=== PATIENT | female | born 1980 | race Caucasian/White ===

== ENCOUNTER 2016-07-23 10:40 | Emergency (ER) | payer BC ==
--- NOTE | 2016-07-23 10:46 | EDM.PDOC ---
ED HPI GI/ABDOMINAL - General Stated Complaint: ABD PAIN Time Seen by Provider: 07/23/16 10:41 Source of Information: Reports: Patient History Limitations: Reports: No limitations - History of Present Illness INITIAL COMMENTS - FREE TEXT/NARRATIVE: History of present illness: [] Patient states that she's been having lower abdominal pain and watery diarrhea that began with one episode 4 days ago and then stopped. The symptoms restarted 2 days ago and has had 4 episodes since. Patient she also started having nonbloody vomiting. She states she's had episodes of incontinence of nonbloody, watery stool. She denies any back pain, numbness or tingling, or difficulty walking. Review of systems: As per history of present illness and below otherwise all systems reviewed and negative. Past medical history: As per history of present illness and as reviewed below otherwise noncontributory. Surgical history: As per history of present illness and as reviewed below otherwise noncontributory. Social history: No reported history of drug or alcohol abuse. Family history: As per history of present illness and as reviewed below otherwise noncontributory. Physical exam: General: Well developed, well nourished in NAD HEENT: Atraumatic, normocephalic, pupils reactive, negative for conjunctival pallor or scleral icterus, mucous membranes moist, throat clear, neck supple, nontender, trachea midline. Lungs: Clear to auscultation, breath sounds equal bilaterally, chest nontender. Heart: S1S2, regular, negative for clicks, rubs, or JVD. Abdomen: Soft, nondistended, nontender. Negative for masses or hepatosplenomegaly. Negative for costovertebral tenderness. Back: No vertebral or paraspinal tenderness to palpation from neck to lumbar- sacral spine. Pelvis: Stable nontender. Genitourinary: Deferred. Rectal: Normal Sphincter tone, no gross blood Extremities: Atraumatic, negative for cords or calf pain. Neurovascular unremarkable. Neuro: Awake, alert, oriented. Cranial nerves II through XII unremarkable. Cerebellum unremarkable. Motor and sensory unremarkable throughout. Exam nonfocal. Diagnostics: [] Labs which are normal, x-ray is excluding a call obstruction Therapeutics: [] IV hydrated the patient had no episodes of fecal incontinence while in the ED. Impression: [] Acute gastroenteritis Plan: [] Zofran for nausea a little up PMD return if symptoms worsen Definitive disposition and diagnosis as appropriate pending reevaluation and review of above. - Related Data Allergies/ADRs: Allergies Allergy/AdvReac Type Severity Reaction Status Date / Time No Known Allergies Allergy Verified 07/23/16 10:49 Home Meds: Home Meds Ondansetron [Zofran ODT] 4 mg PO Q8H PRN #12 tab.dis 07/23/16 [Rx] ED ROS GENERAL - Review of Systems Review Of Systems: See Below (See history of present illness) ED EXAM, GI/ABD - Physical Exam Exam: See Below (See history of present illness) Course - Vital Signs Last Recorded V/S: Last Vital Signs Temp 36.2 C 07/23/16 10:54 Pulse 104 H 07/23/16 10:54 Resp 18 07/23/16 10:54 BP 135/74 07/23/16 10:54 Pulse Ox 96 07/23/16 10:54 - Orders/Labs/Meds Labs: Laboratory Tests 07/23/16 07/23/16 07/23/16 Range/Units 10:50 10:57 10:57 WBC 6.81 (4.0-11.0) K/uL RBC 5.36 (4.30-5.90) M/uL Hgb 14.6 (12.0-16.0) g/dL Hct 45.3 (36.0-46.0) % MCV 84.5 (80.0-98.0) fL MCH 27.2 (27.0-32.0) pg MCHC 32.2 (31.0-37.0) g/dL RDW Std Deviation 46.3 (28.0-62.0) fl RDW Coeff of Chele 15 (11.0-15.0) % Plt Count 245 (150-400) K/uL MPV 10.20 (7.40-12.00) fL Neut % (Auto) 61.0 (48.0-80.0) % Lymph % (Auto) 24.8 (16.0-40.0) % [place] % (Auto) 12.5 (0.0-15.0) % Eos % (Auto) 1.6 (0.0-7.0) % Baso % (Auto) 0.1 (0.0-1.5) % Neut # (Auto) 4.2 (1.4-5.7) K/uL Lymph # (Auto) 1.7 (0.6-2.4) K/uL [place] # (Auto) 0.9 H (0.0-0.8) K/uL Eos # (Auto) 0.1 (0.0-0.7) K/uL Baso # (Auto) 0.0 (0.0-0.1) K/uL Nucleated RBC % 0.0 /100WBC Nucleated RBCs # 0 K/uL Sodium 139 (136-146) mmol/L Potassium 3.9 (3.5-5.1) mmol/L Chloride 105 (98-110) mmol/L Carbon Dioxide 21 (21-31) mmol/L BUN 10 (6.0-23.0) mg/dL Creatinine 0.9 (0.6-1.5) mg/dL Est Cr Clr Drug Dosing 73.55 mL/min Estimated GFR (MDRD) > 60.0 ml/min Glucose 85 (60-110) mg/dL Calcium 9.6 (8.8-10.8) mg/dL Total Bilirubin 0.9 (0.1-1.5) mg/dL AST 28 (5-40) IU/L ALT 24 (8-54) IU/L Alkaline Phosphatase 55 (40-150) Total Protein 8.3 H (6.0-8.0) g/dL Albumin 4.6 (3.5-5.0) g/dL Globulin 3.7 H (2.0-3.5) g/dL Albumin/Globulin Ratio 1.2 L (1.3-2.8) Lipase 16 (7-80) U/L Urine HCG, Qual NEGATIVE (NEGATIVE) Meds: Medications Discontinued Medications Generic Name Dose Route Start Last Admin Trade Name Freq PRN Reason Stop Dose Admin Sodium Chloride 1,000 mls @ 999 mls/hr 07/23/16 11:04 07/23/16 11:20 Normal Saline IV 07/23/16 12:04 999 mls/hr .Bolus ONE Administration Ondansetron HCl 4 mg 07/23/16 11:04 07/23/16 11:20 Zofran IVPUSH 07/23/16 11:05 4 mg ONETIME ONE Administration Departure - Departure Time of Disposition: 13:05 Disposition: Home, Self-Care 01 Condition: good Clinical Impression: Acute gastroenteritis Prescriptions: Ondansetron [Zofran ODT] 4 mg PO Q8H PRN #12 tab.dis PRN Reason: Nausea Referrals: PCP,None [Primary Care Provider] - Additional Instructions: The following information is given to patients seen in the emergency department who are being discharged to home. This information is to outline your options for follow-up care. We provide all patients seen in our emergency department with a follow-up referral. The need for follow-up, as well as the timing and circumstances, are variable depending upon the specifics of your emergency department visit. If you don't have a primary care physician on staff, we will provide you with a referral. We always advise you to contact your personal physician following an emergency department visit to inform them of the circumstance of the visit and for follow-up with them and/or the need for any referrals to a consulting specialist. The emergency department will also refer you to a specialist when appropriate. This referral assures that you have the opportunity for follow-up care with a specialist. All of these measure are taken in an effort to provide you with optimal care, which includes your follow-up. Under all circumstances we always encourage you to contact your private physician who remains a resource for coordinating your care. When calling for follow-up care, please make the office aware that this follow-up is from your recent emergency room visit. If for any reason you are refused follow-up, please contact the [facility] Emergency Department at and asked to speak to the emergency department charge nurse. Zofran for nausea increase fluids followup with PMD [facility] [address] [place] [id number]
[2016-07-23] MEDS ORDERED: Sodium Chloride 0.9% 1,000 ML IV ONE (11:04)
[2016-07-23] MEDS ORDERED: Ondansetron 4 MG/2 ML SDV IVPUSH ONE (11:04)
[2016-07-23 11:23] LABS: CHLORIDE,CL 105 mmol/L (98-110); SODIUM,NA 139 mmol/L (136-146)
--- NOTE | 2016-07-23 12:18 | CR ---
EXAMINATION: PA chest and AP abdomen HISTORY: Vomiting. FINDINGS: The trachea is midline. The cardiomediastinal silhouette is within normal limits. No pulmonary infil trates, effusions or pneumothorax. Osseous structures appear unremarkable. There is a small amount of stool and gas throughout the colon without evidence of a small bowel obst ruction. No dilated loops of small bowel. No abnormal calcifications or organomegaly. IMPRESSION: 1. No acute cardiopulmonary process. 2. Nonobstructive bowel gas pattern.
[2016-07-23 13:23] VITALS: BP 124/80
== END 2016-07-23 13:23 | disposition home or self-care (01) ==
LOC: MERGE 10:40 → MW.ED 10:40
DX: K52.9 Noninfective gastroenteritis and colitis, unspecified (principal)
CPT/HCPCS: 74022; 80053; 81001; 81025; 83690; 85025; 96361; 96374; 99284; J2405; J7040

== ENCOUNTER → 2016-07-26 | Outpatient (CLI) | payer BC ==
[2016-07-26 12:02] LABS: CHLORIDE,CL 102 mmol/L (98-110); SODIUM,NA 140 mmol/L (136-146)
== END | disposition home or self-care (01) ==
LOC: MW.CHFP 11:19
PROVIDERS: ATTEND Student in an Organized Health Care Education/Training Program
DX: R11.2 Nausea with vomiting, unspecified (principal); R19.5 Other fecal abnormalities
CPT/HCPCS: 36415; 80048; 85025